=== PATIENT | male | born 1990 | race American Indian/Alaskan Native ===

== ENCOUNTER 2018-04-28 21:08 | Emergency (ER) | payer SELFPAY ==
[2018-04-28] MEDS ORDERED: TYLENOL PO ONE (21:20)
[2018-04-28] MEDS ORDERED: TYLENOL ONE (21:26)
[2018-04-28 21:28] VITALS: BP 132/88
[2018-04-28] MEDS ORDERED: BACTRIM DS PO ONE (23:13)
[2018-04-28] MEDS ORDERED: MOTRIN PO ONE (23:14)
--- NOTE | 2018-04-28 23:17 | Emergency Department Report ---
- General Chief complaint: Extremity Injury, Lower Stated complaint: RT FOOT PAIN/INSECT BITE Time Seen by Provider: 04/28/18 23:08 Source: patient Mode of arrival: Ambulatory Limitations: No Limitations - History of Present Illness Initial comments: 28-year-old male with no significant past medical history presents also complaining of right foot middle toe pain and swelling 3 days. Patient suspects he was bitten by an insect but did not actually see a insect bite his foot. Denies any trauma. Complains of moderate to severe pain that occurs when putting pressure during walking. He denies fever. Tetanus up-to-date. - Related Data Previous Rx's Medication Instructions Recorded Last Taken Type Ibuprofen [Motrin] 800 mg PO Q8HR PRN #30 tablet 04/28/18 Unknown Rx Sulfamethoxazole/Trimethoprim 1 each PO BID #20 tablet 04/28/18 Unknown Rx [Bactrim DS TAB] Allergies Allergy/AdvReac Type Severity Reaction Status Date / Time No Known Allergies Allergy Verified 04/28/18 21:27 Abscess Boil HPI - HPI Chief Complaint: Extremity Injury, Lower Stated Complaint: RT FOOT PAIN/INSECT BITE Time Seen by Provider: 04/28/18 23:08 Home Medications: Previous Rx's Medication Instructions Recorded Last Taken Type Ibuprofen [Motrin] 800 mg PO Q8HR PRN #30 tablet 04/28/18 Unknown Rx Sulfamethoxazole/Trimethoprim 1 each PO BID #20 tablet 04/28/18 Unknown Rx [Bactrim DS TAB] Allergies/Adverse Reactions: Allergies Allergy/AdvReac Type Severity Reaction Status Date / Time No Known Allergies Allergy Verified 04/28/18 21:27 ED Review of Systems ROS: Stated complaint: RT FOOT PAIN/INSECT BITE Other details as noted in HPI Comment: All other systems reviewed and negative ED Past Medical Hx - Past Medical History Previous Medical History?: No - Surgical History Past Surgical History?: No - Social History Smoking Status: Never Smoker Substance Use Type: None - Medications Home Medications: Home Medications Medication Instructions Recorded Confirmed Last Taken Type Ibuprofen [Motrin] 800 mg PO Q8HR PRN #30 tablet 04/28/18 Unknown Rx Sulfamethoxazole/Trimethoprim 1 each PO BID #20 tablet 04/28/18 Unknown Rx [Bactrim DS TAB] ED Physical Exam - General Limitations: No Limitations - Other Other exam information: General: No limitations, patient is alert in no acute distress Head exam: Atraumatic, normocephalic Eyes exam: Normal appearance, pupils equal reactive to light, extraocular movements intact ENT: Moist mucous membrane, normal oropharynx Neck exam: Normal inspection, full range of motion, no meningismus nontender Respiratory exam: Clear to auscultation bilateral, no wheezes, rales, crackles Cardiovascular: Normal rate and rhythm, normal heart sounds Abdomen: Soft, nondistended, and nontender, with normal bowel sounds, no rebound, or guarding Extremity: Full range of motion, on the dorsum of the foot there is a small pustular base of the third toe with erythema extending to the distal foot. Full passive and active range of motion with minimum pain. 2+ DP pulse Back: Normal Inspection, full range of motion, no tenderness Neurologic: Alert, oriented x3, cranial nerves intact, no motor or sensory deficit Psychiatric: normal affect, normal mood Skin: Warm, dry, intact ED Course Vital Signs 04/28/18 21:24 Temperature 98.9 F Pulse Rate 72 Respiratory 18 Rate Blood Pressure 132/88 O2 Sat by Pulse 96 Oximetry - Reevaluation(s) Reevaluation #1: 04/28/18 23:15 Accu-Chek performed, Bactrim, and Motrin given ED Medical Decision Making - Medical Decision Making Patient will be treated as an outpatient for right foot cellulitis. Glucose is 66 (no signs of diabetes). Vital signs unremarkable. No systemic signs of infection. Tetanus up-to-date. - Differential Diagnosis cellulitis, abscess, contusion Critical Care Time: No Critical care attestation.: If time is entered above; I have spent that time in minutes in the direct care of this critically ill patient, excluding procedure time. ED Disposition Clinical Impression: Cellulitis of right foot Disposition: [id number] TO HOME OR SELFCARE Is pt being admited?: No Does the pt Need Aspirin: No Condition: Stable Instructions: Cellulitis (ED) Additional Instructions: Take the medication as prescribed. Follow up with your doctor or with the doctor/clinic provided. Return if symptoms worsen as indicated by your discharge instructions Prescriptions: Ibuprofen [Motrin] 800 mg PO Q8HR PRN #30 tablet PRN Reason: Pain, Moderate (4-6) Sulfamethoxazole/Trimethoprim [Bactrim DS TAB] 1 each PO BID #20 tablet Referrals: PRIMARY CARE, [Primary Care Provider] - 3-5 Days Forms: Work/School Release Form(ED) Time of Disposition: 23:17 (d/c after po meds)
== END 2018-04-28 23:40 | disposition home or self-care (01) ==
LOC: ED 21:08
DX: L03.115 Cellulitis of right lower limb (principal)
CPT/HCPCS: 82962; 99282